=== PATIENT | female | born 1980 | race African-American/Black ===

== ENCOUNTER 2017-02-26 19:15 | Emergency (ER) | payer SELFPAY ==
[~2017-02-26] VITALS: Ht 165.1 cm; Wt 78.0 kg
[~2017-02-26 19:15] MED LIST: CLEOCIN HCL300 MG PO; PRENATAL VITAMI1 T10 PO
[2017-02-26 19:22] VITALS: BP 95/51
--- NOTE | 2017-02-26 20:43 | NUR ---
TO ER BED 8
--- NOTE | 2017-02-26 20:45 | NUR ---
PATIENT PRESENTS TO ED WITH 36 Y/O F HERE FOR F/U ON WOUNND. NEEDS PACKING REMOVED . PT DENIES N/V/D; SKIN IS PINK/WARM/DRY; AAOX4 WITH EVEN AND STEADY GAIT; LUNGS CLEAR BL; HR EVEN AND REGULAR; PT DENIES ANY FEVER, CP, SOB, OR COUGH AT THIS TIME; PATIENT STATES PAIN OF 5/10 AT THIS TIME; VSS; PATIENT POSITIONED FOR COMFORT; HOB ELEVATED; BEDRAILS UP X2; BED DOWN. ER MD MADE AWARE OF PT STATUS.
--- NOTE | 2017-02-26 21:11 | NUR ---
Patient being evaluated by physician at bedside.
[2017-02-26 21:39] VITALS: BP 95/51
--- NOTE | 2017-02-26 21:39 | NUR ---
Patient discharged with v/s stable. Written and verbal after care instructions given and explained. Patient verbalized understanding. Ambulatory with steady gait. All questions addressed prior to discharge. Advised to follow up with PMD.
== END 2017-02-26 21:39 | disposition home or self-care (01) ==
LOC: MED 19:15
DX: Z48.01 Encounter for change or removal of surgical wound dressing (principal)